=== PATIENT | female | born 1990 | race Caucasian/White ===

== ENCOUNTER 2020-01-28 13:18 | Inpatient (IN) | payer OTHER ==
[~2020-01-28 13:18] MED LIST: Bupivacaine 0.25% 10 ML SDV ONE
[2020-01-28] MEDS ORDERED: Ampicillin 2 GM in Sodium Chloride 0.9% 100 ML IV ONE (14:46)
[2020-01-28] MEDS ORDERED: Nalbuphine 10 MG/ML Syringe IVPUSH PRN (14:46)
[2020-01-28] MEDS ORDERED: Sodium Chloride 0.9% 10 ML Syringe FLUSH PRN (14:46)
[2020-01-28] MEDS ORDERED: Oxytocin/Lactated Ringers 10 UNIT/1,000 ML BAG IV SCH ×2 (15:00)
[2020-01-28] MEDS: Lactated Ringers 1,000 ML IV SCH ×3 (15:00→17:51)
[2020-01-28] MEDS ORDERED: fentaNYL 100 MCG/2 ML SDV EPIDUR PRN (15:22)
[2020-01-28] MEDS ORDERED: diphenhydrAMINE 50 MG/ML SDV IVPUSH PRN (15:22)
[2020-01-28] MEDS ORDERED: ePHEDrine 50 MG/ML SDV IVPUSH PRN (15:22)
[2020-01-28] MEDS ORDERED: Bupivacaine/fentaNYL/NS 100 ML Bag EPIDUR PRN (15:22)
--- NOTE | 2020-01-28 17:36 | PCM.LDHP ---
L&D History of Present Illness - General Date of Service: 01/28/20 Admit Problem/Dx: Patient Status Order with Admit Dx/Problem 01/28/20 15:21 Patient Status [ADT] Routine Admission Diagnosis/Problem Admission Diagnosis/Problem Source of Information: Patient History Limitations: Reports: No Limitations - History of Present Illness Introduction:: Terese is a 29-year-old 3 para 1011 female at 39-4/7 weeks' gestational age with an OLIVIER of 01/31/2020 who presents to L&D in active labor on the afterno on of 01/28/2020. Upon examination, her cervix is 4 cm dilated, 70% effaced, -2 station, posterior position. Decision was made to start Pitocin and patient was in agreement. heart rate monitoring shows good variability, good accelerations, and no decelerations. GBS was positive. Prophylactic ampicillin 2 g IV was started at 1446. Second dose to be given in 4 hours. Artificial rupture of membranes was performed at approximately 1720 with resultant clear fluid. 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 LMP was 04/26/2019 and she had regular cycles prior to becoming . Her average cycles were 30 days. No control was utilized at the time of conception. 2 prior outcomes: 04/28/2018 -8 lbs. 15 oz. baby boy named Mando at 39-1/7 weeks, , 17 hour labor; hx of spontaneous history: LMP was 04/26/2019 with regular cycles. OLIVIER of 01/31/2020 supported by early ultrasound at 6-1/7 weeks' gestational age on 06/10/2019. Multiple ultrasounds showed adequate growth with no abnormalities. Last ultrasound was performed on 10/09/2019 at 23-1/7 weeks' gestational age. MOUSTAPHA was WNL and fetus was at 60th percentile. Fundal height was consistent with dating throughout the . She plans to breast feed after delivery. She requests an epidural as labor progresses. Risk factors for include: history of macrosomic baby (8 lbs. 15 oz.), history of anxiety in period Labs: Blood type is A positive with negative antibody screen. Initial labs showed hemoglobin of 12.8 g/dL and platelets of 513,000. Rubella immune. RPR was nonreactive. Gonorrhea and chlamydia screens were negative. Hepatitis B surface antigen and HIV were negative. 1 hour GTT was normal at 111. Second trimester labs showed hemoglobin of 12.1 g/dL and platelets of 439,000. GBS was positive. Past medical history: 1. history of anxiety 2. Cytosis requiring blood transfusion Past surgical history: 1. Cholecystectomy - 2005 2. Splenectomy - 2005 Allergies: no known allergies Current medications: 1. oral tablet daily Family history: Mother is alive and well, also has history of severe cytosis. She is a twin. F ather is alive and has a history of hypercholesterolemia. 1 sister alive and well. Maternal grandfather is alive and has dementia. Maternal grandmother is , unknown history. Paternal grandfather is , unknown history. Paternal grandmother is secondary to pneumonia. She had a history of cancer, unknown type. No family history of bleeding/clotting disorders, anesthesia-related disorders, or -related problems. Social history: Terese is to Peter. They live in [place], [place]. 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 No tobacco, alcohol, or illicit substance use during . 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 on vits for home meds Social & Family History - Family History Family Medical History: Noncontributory - Tobacco Use Smoking Status *Q: Former Smoker Years of Tobacco use: 4 Used Tobacco, but Quit: Yes Month/Year Tobacco Last Used: 2015 - Recreational Drug Use Recreational Drug Use: No H&P Review of Systems - Review of Systems: Review Of Systems: See Below General: Reports: No Symptoms HEENT: Reports: No Symptoms Pulmonary: Reports: No Symptoms Cardiovascular: Reports: No Symptoms, Blood Pressure Problem Genitourinary: Reports: No Symptoms Musculoskeletal: Reports: No Symptoms Skin: Reports: No Symptoms Psychiatric: Reports: No Symptoms L&D Exam - Exam Exam: See Below - Vital Signs Vital Signs: Last Vital Signs Temp 98.2 F 01/28/20 13:26 Pulse 96 01/28/20 13:26 Resp 16 01/28/20 13:26 BP 123/78 01/28/20 13:26 Pulse Ox Weight: 211 lb - OB Specific Contraction Intensity: Moderate Movement: Active Heart Tones: Present Heart Rate (FHR) Variability: Moderate (6-25 bmp) Presentation: Vertex - Philippe Score Philippe Score Cervix Position: Posterior Philippe Score Consistency: Soft Philippe Score Effacement: 51-70% Philippe Score Dilation: 3-4 cm Philippe Score 's Station: -2 Philippe Score Total: 7 - Exam General: Alert, Oriented HEENT: Conjunctiva Clear, EOMI, Mucosa Moist & [place] Neck: Supple, Trachea Midline Lungs: Clear to Auscultation, Normal Respiratory Effort Cardiovascular: Regular Rate, Regular Rhythm GI/Abdominal Exam: Non-Tender, Other (Gravid abdomen) Genitourinary: Normal external exam, Normal bimanual exam, Cervical dilitation Back Exam: Normal Inspection Extremities: Normal Inspection, Non-Tender, Normal Capillary Refill Skin: Warm, Dry, Intact - Patient Data Lab Results Last 24 hrs: Laboratory Results - last 24 hr 01/28/20 01/28/20 01/28/20 Range/Units 14:55 14:59 14:59 WBC 17.08 H (3.98-10.04) K/mm3 RBC 4.78 (3.98-5.22) M/mm3 Hgb 13.0 (11.2-15.7) gm/dl Hct 39.0 (34.1-44.9) % MCV 81.6 (79.4-94.8) fl MCH 27.2 (25.6-32.2) pg MCHC 33.3 (32.2-35.5) g/dl RDW Std Deviation 45.2 (36.4-46.3) fL Plt Count 327 D (182-369) K/mm3 MPV 11.1 (9.4-12.3) fl Neut % (Auto) 78.6 H (34.0-71.1) % Lymph % (Auto) 15.1 L (19.3-51.7) % [place] % (Auto) 5.0 (4.7-12.5) % Eos % (Auto) 0.2 L (0.7-5.8) Baso % (Auto) 0.3 (0.1-1.2) % Neut # (Auto) 13.43 H (1.56-6.13) K/mm3 Lymph # (Auto) 2.58 (1.18-3.74) K/mm3 [place] # (Auto) 0.85 H (0.24-0.36) K/mm3 Eos # (Auto) 0.04 (0.04-0.36) K/mm3 Baso # (Auto) 0.05 (0.01-0.08) K/mm3 Manual Slide Review Abnormal smear COVID-19 (TO) Negative (NEGATIVE) Blood Type A POSITIVE Gel Antibody Screen Negative Result Diagrams: 01/28/20 14:59 Problem List Initiated/Reviewed/Updated: Yes Orders Last 24hrs: Active Orders 24 hr Category Date Time Status Patient Status [ADT] Routine ADT 01/28/20 15:21 Active Activity as Tolerated [RC] PFP Care 01/28/20 14:46 Active Communication Order [RC] ASDIRECTED Care 01/28/20 14:46 Active Communication Order [RC] ASDIRECTED Care 01/28/20 15:22 Active Cooling Warming Measures [RC] ASDIRECTED Care 01/28/20 15:22 Active Heart Tones [RC] ASDIRECTED Care 01/28/20 14:47 Active Non Stress Test [RC] PER UNIT ROUTINE Care 01/28/20 13:26 Active Notify Provider [RC] ASDIRECTED Care 01/28/20 15:22 Active Notify Provider [RC] ASDIRECTED Care 01/28/20 15:22 Active Notify Provider [RC] PFP Care 01/28/20 14:46 Active Notify Provider [RC] PRN Care 01/28/20 14:46 Active Oxygen Therapy [RC] ASDIRECTED Care 01/28/20 15:22 Active Peripheral IV Care [RC] Q2HR Care 01/28/20 14:47 Active Pulse Oximetry [RC] ASDIRECTED Care 01/28/20 15:22 Active Vital Signs [RC] 03,09,15,21 Care 01/28/20 15:22 Active Vital Signs [RC] PER UNIT ROUTINE Care 01/28/20 13:26 Active Regular Diet [DIET] Diet 01/28/20 Lunch Active RAPID PLASMA REAGIN,RPR [CHEM] Routine Lab 01/28/20 14:59 Received Ampicillin 1 gm Med 01/28/20 19:00 Active Sodium Chloride 0.9% [Normal Saline] 100 ml IV Q4H Bupivacaine/fentaNYL/NS [fentaNYL/Bupivacaine/NS 2 MCG- Med 01/28/20 15:22 Active 0.125% 100 ML] 100 ml EPIDUR ASDIRECTED PRN Lactated Ringers [Ringers, Lactated] 1,000 ml Med 01/28/20 15:00 Active IV ASDIRECTED Nalbuphine [Nubain] Med 01/28/20 14:46 Active 10 mg IVPUSH Q2H PRN Oxytocin/Lactated Ringers [Pitocin in LR 10 Units/1,000 Med 01/28/20 15:00 Active ML] 10 unit in 1,000 ml IV .CONTINUOUS Oxytocin/Lactated Ringers [Pitocin in LR 10 Units/1,000 Med 01/28/20 15:00 Active ML] 10 unit in 1,000 ml IV TITRATE Sodium Chloride 0.9% [Saline Flush] Med 01/28/20 14:46 Active 10 ml FLUSH ASDIRECTED PRN diphenhydrAMINE [Benadryl] Med 01/28/20 15:22 Active 25 mg IVPUSH Q6H PRN ePHEDrine [ePHEDrine sulfate] Med 01/28/20 15:22 Active 5 mg IVPUSH ASDIRECTED PRN fentaNYL [Sublimaze] Med 01/28/20 15:22 Active 100 mcg EPIDUR Q3H PRN Electronic Heart Tones Ext w TOCO [WOMSER] Oth 01/28/20 14:46 Ordered Routine Electronic Heart Tones Internal [WOMSER] Per Unit Oth 01/28/20 14:46 Ordered Routine Peripheral IV Insertion Adult [OM.PC] Routine Oth 01/28/20 14:46 Ordered Resuscitation Status Routine Resus Stat 01/28/20 13:25 Ordered Medication Orders Diphenhydramine HCl (Benadryl) 25 mg IVPUSH Q6H PRN PRN Reason: pruritis Ephedrine Sulfate (Ephedrine Sulfate) 5 mg IVPUSH ASDIRECTED PRN PRN Reason: Hypotension Fentanyl (Sublimaze) 100 mcg EPIDUR Q3H PRN PRN Reason: Pain Last Admin: 01/28/20 17:24 Dose: 100 mcg Documented by: CELENA Fentanyl/Bupivacaine HCl (Fentanyl/Bupivacaine/Ns 2 Mcg-0.125% 100 Ml) 100 ml EPIDUR ASDIRECTED PRN PRN Reason: Pain Last Admin: 01/28/20 17:25 Dose: 100 ml Documented by: CELENA Lactated Ringer's (Ringers, Lactated) 1,000 mls @ 100 mls/hr IV ASDIRECTED ELAINE Last Admin: 01/28/20 17:14 Dose: 100 mls/hr Documented by: Infusion: 01/28/20 17:14 Dose: 100 mls/hr Documented by: Admin: 01/28/20 15:00 Dose: 100 mls/hr Documented by: CELENA Ampicillin Sodium 1 gm/ Sodium (Chloride) 100 mls @ 200 mls/hr IV Q4H ELAINE Oxytocin/Lactated Ringer's (Pitocin In Lr 10 Units/1,000 Ml) 10 unit in 1,000 mls @ 100 mls/hr IV .CONTINUOUS ELAINE Oxytocin/Lactated Ringer's (Pitocin In Lr 10 Units/1,000 Ml) 10 unit in 1,000 mls @ 12 mls/hr IV TITRATE ELAINE; Protocol Nalbuphine HCl (Nubain) 10 mg IVPUSH Q2H PRN PRN Reason: Pain Sodium Chloride (Saline Flush) 10 ml FLUSH ASDIRECTED PRN PRN Reason: Keep Vein Open Assessment/Plan Comment:: Assessment: 1. Terese is a 29-year-old white 3 para 1011 female at 39-4/7 weeks' gestational age with an OLIVIER of 01/31/2020 who presents in active labor 2. Risk factors for : history of macrosomic baby (8 lbs. 15 oz.), history of anxiety in period 3. GBS positive. 4. Rubella immune 5. RPR nonreactive 6. Patient desires epidural as labor progresses Plan: 1. Induction with Pitocin is discussed including risks and benefits. Patient vo ices understanding and wishes to proceed. 2. Artificial rupture of membranes performed at approximately 1720. 3. Ampicillin 2 g IV given at 1426. Second dose of ampicillin 1 g given every 4 hours thereafter. 4. Regular diet. 5. Routine labor care. 6. RPR and CBC upon admission. 7. Epidural available if patient so chooses. 8. Anticipate normal spontaneous vaginal delivery.
--- NOTE | 2020-01-28 17:40 | PCM.PREANE ---
Preanesthetic Assessment - Procedure Proposed Procedure: epidural - Anesthesia/Transfusion/Family Hx Anesthesia History: Prior Anesthesia Without Reaction Family History of Anesthesia Reaction: No Transfusion History: Prior Transfusion Without Reaction - Review of Systems General: Fatigue Pulmonary: No Symptoms Cardiovascular: No Symptoms Gastrointestinal: Abdominal Pain (labor) Neurological: No Symptoms Other: Reports: None - Physical Assessment Vital Signs: Last Vital Signs Temp 36.8 C 01/28/20 13:26 Pulse 96 01/28/20 13:26 Resp 16 01/28/20 13:26 BP 123/78 01/28/20 13:26 Pulse Ox Height: 1.78 m Weight: 95.708 kg ASA Class: 2 Mental Status: Alert & Oriented x3 Airway Class: Mallampati = 1 Dentition: Reports: Normal Dentition Thyro-Mental Finger Breadths: 3 Mouth Opening Finger Breadths: 3 ROM/Head Extension: Full Lungs: Clear to Auscultation, Normal Respiratory Effort Cardiovascular: Regular Rate, Regular Rhythm - Lab Values: Laboratory Last Values WBC 17.08 K/mm3 (3.98-10.04) H 01/28/20 14:59 RBC 4.78 M/mm3 (3.98-5.22) 01/28/20 14:59 Hgb 13.0 gm/dl (11.2-15.7) 01/28/20 14:59 Hct 39.0 % (34.1-44.9) 01/28/20 14:59 MCV 81.6 fl (79.4-94.8) 01/28/20 14:59 MCH 27.2 pg (25.6-32.2) 01/28/20 14:59 MCHC 33.3 g/dl (32.2-35.5) 01/28/20 14:59 RDW Std Deviation 45.2 fL (36.4-46.3) 01/28/20 14:59 Plt Count 327 K/mm3 (182-369) D 01/28/20 14:59 MPV 11.1 fl (9.4-12.3) 01/28/20 14:59 Neut % (Auto) 78.6 % (34.0-71.1) H 01/28/20 14:59 Lymph % (Auto) 15.1 % (19.3-51.7) L 01/28/20 14:59 [place] % (Auto) 5.0 % (4.7-12.5) 01/28/20 14:59 Eos % (Auto) 0.2 (0.7-5.8) L 01/28/20 14:59 Baso % (Auto) 0.3 % (0.1-1.2) 01/28/20 14:59 Neut # (Auto) 13.43 K/mm3 (1.56-6.13) H 01/28/20 14:59 Lymph # (Auto) 2.58 K/mm3 (1.18-3.74) 01/28/20 14:59 [place] # (Auto) 0.85 K/mm3 (0.24-0.36) H 01/28/20 14:59 Eos # (Auto) 0.04 K/mm3 (0.04-0.36) 01/28/20 14:59 Baso # (Auto) 0.05 K/mm3 (0.01-0.08) 01/28/20 14:59 Manual Slide Review Abnormal smear 01/28/20 14:59 COVID-19 (TO) Negative (NEGATIVE) 01/28/20 14:55 Blood Type A POSITIVE 01/28/20 14:59 Gel Antibody Screen Negative 01/28/20 14:59 - Allergies Allergies/Adverse Reactions: Allergies Allergy/AdvReac Type Severity Reaction Status Date / Time No Known Allergies Allergy Verified 04/28/18 04:40 - Anesthesia Plan Pre-Op Medication Ordered: None - Acknowledgements Anesthesia Type Planned: Epidural Pt an Appropriate Candidate for the Planned Anesthesia: Yes Alternatives and Risks of Anesthesia Discussed w Pt/Guardian: Yes Pt/Guardian Understands and Agrees with Anesthesia Plan: Yes PreAnesthesia Questionnaire - Past Health History Medical/Surgical History: Denies Medical/Surgical History Cardiovascular History: Reports: None Respiratory History: Reports: None Gastrointestinal History: Reports: 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 on vits for home meds - SUBSTANCE USE Smoking Status *Q: Former Smoker Tobacco Use Within Last Twelve Months: Cigarettes Recreational Drug Use History: No - HOME MEDS Home Medications: Home Meds No122/Iron/Folic Acid [ Multi Tablet] 1 each PO DAILY 01/28/20 [History] - CURRENT (IN HOUSE) MEDS Current Meds: Current Medications Diphenhydramine HCl (Benadryl) 25 mg IVPUSH Q6H PRN PRN Reason: pruritis Ephedrine Sulfate (Ephedrine Sulfate) 5 mg IVPUSH ASDIRECTED PRN PRN Reason: Hypotension Fentanyl (Sublimaze) 100 mcg EPIDUR Q3H PRN PRN Reason: Pain Last Admin: 01/28/20 17:24 Dose: 100 mcg Documented by: Fentanyl/Bupivacaine HCl (Fentanyl/Bupivacaine/Ns 2 Mcg-0.125% 100 Ml) 100 ml EPIDUR ASDIRECTED PRN PRN Reason: Pain Last Admin: 01/28/20 17:25 Dose: 100 ml Documented by: Lactated Ringer's (Ringers, Lactated) 1,000 mls @ 100 mls/hr IV ASDIRECTED ELAINE Last Admin: 01/28/20 17:14 Dose: 100 mls/hr Documented by: Ampicillin Sodium 1 gm/ Sodium (Chloride) 100 mls @ 200 mls/hr IV Q4H ELAINE Oxytocin/Lactated Ringer's (Pitocin In Lr 10 Units/1,000 Ml) 10 unit in 1,000 mls @ 100 mls/hr IV .CONTINUOUS ELAINE Oxytocin/Lactated Ringer's (Pitocin In Lr 10 Units/1,000 Ml) 10 unit in 1,000 mls @ 12 mls/hr IV TITRATE ELAINE; Protocol Nalbuphine HCl (Nubain) 10 mg IVPUSH Q2H PRN PRN Reason: Pain Sodium Chloride (Saline Flush) 10 ml FLUSH ASDIRECTED PRN PRN Reason: Keep Vein Open Discontinued Medications Ampicillin Sodium 2 gm/ Sodium (Chloride) 100 mls @ 200 mls/hr IV ONETIME ONE Stop: 01/28/20 15:15 Last Admin: 01/28/20 15:00 Dose: 200 mls/hr Documented by:
[2020-01-28] MEDS ORDERED: Ampicillin 1 GM in Sodium Chloride 0.9% 100 ML IV SCH (19:00)
[2020-01-28] MEDS ORDERED: Lidocaine 1% 50 ML MDV ONE (21:42)
--- NOTE | 2020-01-28 22:13 | PCM.SN.2 ---
- Free Text/Narrative Note: Terese is a 29-year-old 3 now para 2012 white female who was admitted for active labor at 39-4/7 weeks gestational age with an OLIVIER of 01/31/2020. Patient was jessica every 5-7 minutes upon arrival. She was dilated to 4 cm, 70% effaced, soft, posterior, -2 station. Patient was GBS positive, so she received prophylactic antibiotics during labor. After a few hours of good labor pattern, she underwent artificial rupture of membranes with resultant clear amniotic fluid at approximately 1720. She received labor analgesia via an epidural. She progressed rapidly from 4 cm to complete at approximately 2120 hours on 01/28/2020. At 2131, patient delivered a viable, anguiano, female infant named Lee Ann Armas. Baby weighed 3880 g (8 pounds 8.9 ounces). Apgars of 8 and 9. Length of 20.5 inches. Baby delivered in an occiput anterior position. Patient sustained 2nd degree laceration as well as left labial laceration. Baby was placed on moms abdomen, dried and nose and mouth were cleared with bulb suction. Pitocin was increased to 500 cc/hour to facilitate increase in uterine tone to decrease likelihood of bleeding. The umbilical cord was intact with 3 vessels present. Cord was allowed to pulsate for approximately 2 to 3 minutes. It was then clamped x2 and cut by juliane Green. Cord blood was obtained. Repair of lacerations was then undertaken with interrupted and short running sutures of 3-0 Monocryl. Perineal and labial lacerations were repaired in a routine fashion. Labor epidural analgesia was used for perineal laceration repair anesthesia. Patient required 10 cc of 1% lidocaine for labial lacerations. Patient tolerated this well. The placenta delivered in a [place] presentation at 2153. It appeared intact and completed. It was discard per patient desire. Blood loss was 200 cc. Patient plans to breastfeed.
[2020-01-28] MEDS ORDERED: Docusate Sodium 100 MG Cap PO PRN (22:38)
[2020-01-28] MEDS ORDERED: Acetaminophen 325 MG Tab PO PRN (22:38)
[2020-01-28] MEDS ORDERED: Benzocaine/Menthol 20%-0.5% Spray 56 GM Canister TOP PRN (22:38)
[2020-01-28] MEDS ORDERED: Witch Hazel Medicated Pads 40/Jar TOP PRN (22:38)
[2020-01-29] MEDS: Ibuprofen 600 MG Tab PO PRN ×4 (00:04→20:16)
--- NOTE | 2020-01-29 07:31 | PCM.SN.2 ---
- Free Text/Narrative Note: note: Patient is doing well in the period. Minimal lochia, voiding well, nursing with no concerns, and has ambulated without problems. Pain well controlled. Patient is afebrile, vital signs are stable Abdomen is flat, soft, uterus is below the umbilicus and is firm and nontender. Legs are nontender. Assessment: recovery going well. Plan: Routine care. Patient be discharged home within the next 24-48 hours.
[2020-01-29] MEDS: Prenatal Multivitamin with Calcium/Folic Acid/Iron Tab PO SCH (08:55)
[2020-01-30] MEDS: Ibuprofen 600 MG Tab PO PRN (06:21)
[2020-01-30] MEDS: Prenatal Multivitamin with Calcium/Folic Acid/Iron Tab PO SCH (08:40)
--- NOTE | 2020-01-30 09:30 | PCM.SN.2 ---
- Free Text/Narrative Note: Post Progress Note PPD #2 Subjective: Doing well overall. Ambulating without difficulty. Lochia minimal. Voiding without difficulty. Tolerating regular diet without nausea or vomiting. Pain controlled with oral medications. Breast-feeding with minimal difficulty but did use some formula supplementation on day #1. She states that she has not needed to use any additional formula supplementation for the last 3 or so feedings. Objective: Vitals: Vital Signs - 24 hr 01/29/20 01/29/20 01/29/20 15:19 20:18 21:00 Temperature 36.4 C Temperature [ 36.6 C Temporal] Pulse, 71 72 Peripheral Respiratory 14 16 Rate Blood Pressure 102/72 111/63 O2 Sat by Pulse 99 99 Oximetry 01/30/20 01/30/20 06:15 07:43 Temperature 36.7 C 36.4 C Temperature [ Temporal] Pulse, 73 63 Peripheral Respiratory 16 14 Rate Blood Pressure 126/99 H 122/82 O2 Sat by Pulse 97 99 Oximetry Physical Exam General: Alert and oriented, no acute distress Lungs: Clear to auscultation bilaterally Heart: Regular rate and rhythm Abdomen: Soft, minimal appropriate tenderness, non-distended, fundus midline, nontender, and at the umbilicus Extremities: No edema ASSESSMENT: 29-year-old female GP s/p -0-1-2 vaginal delivery PPD #2, complicated by GBS positive status and received 2 doses of antibiotics prior to delivery PLAN: Doing well Breast-feeding with minimal difficulty. Assist as needed Lochia minimal. Continue to monitor for appropriate lochia. Continue routine care Patient with 1 mildly elevated blood pressure this morning but no other elevated blood pressures throughout her stay. Suspect that this may have been a pain reaction and not secondary to gestational hypertension or preeclampsia Discharge home today Aidan Mosley MD 9:32 AM 01/30/2020
--- NOTE | 2020-01-30 09:52 | PCM.DCSUM1 ---
Discharge Summary - Hospital Course Free Text/Narrative:: Terese is a 29-year-old 3 now para 2012 white female who was admitted for active labor at 39-4/7 weeks gestational age with an OLIVIER of 01/31/2020. Patient was jessica every 5-7 minutes upon arrival. She was dilated to 4 cm, 70% effaced, soft, posterior, -2 station. Patient was GBS positive, so she received prophylactic antibiotics during labor. After a few hours of good labor pattern, she underwent artificial rupture of membranes with resultant clear amniotic fluid at approximately 1720. She received labor analgesia via an epidural. She progressed rapidly from 4 cm to complete at approximately 2120 hours on 01/28/2020. At 213, patient delivered a viable, anguiano, female infant named Lee Ann Armas. Baby weighed 3880 g (8 pounds 8.9 ounces). Apgars of 8 and 9. Length of 20.5 inches. Baby delivered in an occiput anterior position. Patient sustained 2nd degree laceration as well as left labial laceration. Baby was placed on moms abdomen, dried and nose and mouth were cleared with bulb suction. Pitocin was increased to 500 cc/hour to facilitate increase in uterine tone to decrease likelihood of bleeding. The umbilical cord was intact with 3 vessels present. Cord was allowed to pulsate for approximately 2 to 3 minutes. It was then clamped x2 and cut by juliane Green. Cord blood was obtained. Repair of lacerations was then undertaken with interrupted and short running sutures of 3-0 Monocryl. Perineal and labial lacerations were repaired in a routine fashion. Labor epidural analgesia was used for perineal laceration repair anesthesia. Patient required 10 cc of 1% lidocaine for labial lacerations. Patient tolerated this well. The placenta delivered in a [place] presentation at 2153. It appeared intact and completed. It was discard per patient desire. Blood loss was 200 cc. Patient plans to breastfeed. HPI Initial Comments: Terese is a 29-year-old 3 now para 2012 white female who was admitted for active labor at 39-4/7 weeks gestational age with an OLIVIER of 01/31/2020. Patient was jessica every 5-7 minutes upon arrival. She was dilated to 4 cm, 70% effaced, soft, posterior, -2 station. Patient was GBS positive, so she received prophylactic antibiotics during labor. After a few hours of good labor pattern, she underwent artificial rupture of membranes with resultant clear amniotic fluid at approximately 1720. She received labor analgesia via an epidural. She progressed rapidly from 4 cm to complete at approximately 2120 hours on 01/28/2020. At 213, patient delivered a viable, anguiano, female infant named Lee Ann Armas. Baby weighed 3880 g (8 pounds 8.9 ounces). Apgars of 8 and 9. Length of 20.5 inches. Baby delivered in an occiput anterior position. Patient sustained 2nd degree laceration as well as left labial laceration. Baby was placed on moms abdomen, dried and nose and mouth were cleared with bulb suction. Pitocin was increased to 500 cc/hour to facilitate increase in uterine tone to decrease likelihood of bleeding. The umbilical cord was intact with 3 vessels present. Cord was allowed to pulsate for approximately 2 to 3 minutes. It was then clamped x2 and cut by juliane Green. Cord blood was obtained. Repair of lacerations was then undertaken with interrupted and short running sutures of 3-0 Monocryl. Perineal and labial lacerations were repaired in a routine fashion. Labor epidural analgesia was used for perineal laceration repair anesthesia. Patient required 10 cc of 1% lidocaine for labial lacerations. Patient tolerated this well. The placenta delivered in a [place] presentation at 2152. It appeared intact and completed. It was discard per patient desire. Blood loss was 200 cc. Patient plans to breastfeed. Brief History: Terese is a 29-year-old 3 now para 2012 white female who was admitted for active labor at 39-4/7 weeks gestational age with an OLIVIER of 01/31/2020. Patient was jsesica every 5-7 minutes upon arrival. She was dilated to 4 cm, 70% effaced, soft, posterior, -2 station. Patient was GBS positive, so she received prophylactic antibiotics during labor. After a few hours of good labor pattern, she underwent artificial rupture of membranes with resultant clear amniotic fluid at approximately 1720. She received labor analgesia via an epidural. She progressed rapidly from 4 cm to complete at approximately 2120 hours on 01/28/2020. At 2132, patient delivered a viable, anguiano, female infant named Lee Ann Armas. Baby weighed 3880 g (8 pounds 8.9 ounces). Apgars of 8 and 9. Length of 20.5 inches. Baby delivered in an occiput anterior position. Patient sustained 2nd degree laceration as well as left labial laceration. Baby was placed on moms abdomen, dried and nose and mouth were cleared with bulb suction. Pitocin was increased to 500 cc/hour to facilitate increase in uterine tone to decrease likelihood of bleeding. The umbilical cord was intact with 3 vessels present. Cord was allowed to pulsate for approximately 2 to 3 minutes. It was then clamped x2 and cut by juliane Green. Cord blood was obtained. Repair of lacerations was then undertaken with interrupted and short running sutures of 3-0 Monocryl. Perineal and labial lacerations were repaired in a routine fashion. Labor epidural analgesia was used for perineal laceration repair anesthesia. Patient required 10 cc of 1% lidocaine for labial lacerations. Patient tolerated this well. The placenta delivered in a [place] presentation at 2153. It appeared intact and completed. It was discard per patient desire. Blood loss was 200 cc. Patient plans to breastfeed. Diagnosis: Stroke: No - Discharge Data Discharge Date: 01/30/20 Discharge Disposition: Home, Self-Care 01 Condition: Good - Referral to Home Health Primary Care Physician: Sukhdev Brooks MD - Discharge Diagnosis/Problem(s) (1) 39 weeks gestation of SNOMED Code(s): 96012646 ICD Code: Z3A.39 - 39 WEEKS GESTATION OF Status: Acute Current Visit: Yes (2) Vaginal delivery SNOMED Code(s): 559508889 ICD Code: O80 - ENCOUNTER FOR FULL-TERM UNCOMPLICATED DELIVERY Status: Acute Current Visit: Yes (3) GBS (group B Streptococcus carrier), +RV culture, currently SNOMED Code(s): 4560404911188, 842653609, 7482313907754 ICD Code: O99.820 - STREPTOCOCCUS B CARRIER STATE COMPLICATING Status: Acute Current Visit: Yes - Patient Summary/Data Complications: None Consults: None Hospital Course: Terese Bustamante was admitted for active labor. On admission her cervix was dilated to 4 cm. She was GBS positive and was started on ampicillin for GBS prophylaxis. She received a total of 2 doses prior to delivery. She was given pitocin for augmentation. She was given an epidural for anesthesia. She had artificial rupture of membranes with clear fluid. She progressed to complete and began pushing. On 01/28/2020 she had a normal vaginal delivery of a live female infant at 21:32. Apgars of 8 and 9. Weight of 3880 g (8 pounds 8.9 ounces). Her course was uneventful. Her pain was well controlled and she had minimal lochia. She was ambulating, tolerating a regular diet and voiding normally. She was breast-feeding with minimal difficulty. She did use some of formula supplementation on PPD #1 but was not needing to use it on PPD #2. She was afebrile and her hematocrit was 39.0 on admission. She desired to be discharged home on the morning of PPD #2. Her blood type is A+. - Patient Instructions Diet: Regular Diet as Tolerated Activity: Apply Ice, As Tolerated Activity, Other: Nothing in the vagina for 6 weeks Driving: May Drive Today Showering/Bathing: May Shower Notify Provider of: Fever, Increased Pain, Swelling and Redness, Drainage, Nausea and/or Vomiting Other/Special Instructions: Please contact your physician's office if you have heavy vaginal bleeding enough to soak a pad in less than an hour for several hours. Monitor for any signs of an infection in the breasts with severe pain or redness of the breast. - Discharge Plan *PRESCRIPTION DRUG MONITORING PROGRAM REVIEWED*: Not Applicable *COPY OF PRESCRIPTION DRUG MONITORING REPORT IN PATIENT WALTER: Not Applicable Home Medications: Home Meds No122/Iron/Folic Acid [ Multi Tablet] 1 each PO DAILY 01/28/20 [History] Acetaminophen [Tylenol] 650 mg PO Q4H PRN tablet 01/30/20 [Rx] Benzocaine/Menthol [Dermoplast Pain Relief [place]] 1 spray TOP ASDIRECTED PRN canister 01/30/20 [Rx] Docusate Sodium [Colace] 100 mg PO BID PRN cap 01/30/20 [Rx] Ibuprofen [Motrin] 600 mg PO Q4H PRN tablet 01/30/20 [Rx] witch Shant [Tucks] 1 pad TOP ASDIRECTED PRN pad 01/30/20 [Rx] Patient Handouts: Care After Vaginal Delivery Referrals: Sukhdev Brooks MD [Primary Care Provider] - (Follow-up in 2 weeks for routine visit or earlier as needed.) - Discharge Summary/Plan Comment DC Time >30 min.: No - Patient Data Vitals - Most Recent: Last Vital Signs Temp 36.4 C 01/30/20 07:43 Pulse 63 01/30/20 07:43 Resp 14 01/30/20 07:43 BP 122/82 01/30/20 07:43 Pulse Ox 99 01/30/20 07:43 Weight - Most Recent: 95.708 kg I&O - Last 24 hours: Intake & Output 01/29/20 01/30/20 01/30/20 22:59 06:59 14:59 Intake Total 380 Balance 380 Med Orders - Current: Current Medications Acetaminophen (Tylenol) 650 mg PO Q4H PRN PRN Reason: mild pain or fever Last Admin: 01/29/20 03:28 Dose: 650 mg Documented by: Benzocaine/Menthol (Dermoplast Pain Relief [place]) 0 gm TOP ASDIRECTED PRN PRN Reason: Perineal Comfort Measure Last Admin: 01/28/20 23:19 Dose: 1 applic Documented by: Docusate Sodium (Colace) 100 mg PO BID PRN PRN Reason: Constipation Ibuprofen (Motrin) 600 mg PO Q4H PRN PRN Reason: Mild pain or fever Last Admin: 01/30/20 06:21 Dose: 600 mg Documented by: Prenat Multivit/[place]/Iron/Folic Ac ( Plus Iron) 1 each PO DAILY ELAINE Last Admin: 01/30/20 08:40 Dose: Not Given [facility] TOP ASDIRECTED PRN PRN Reason: Perineal Comfort Measure Last Admin: 01/28/20 23:19 Dose: 1 pad Documented by: Discontinued Medications Bupivacaine HCl (Sensorcaine-Mpf 0.25%) 10 ml .ROUTE .STK-MED ONE Stop: 01/28/20 00:01 Diphenhydramine HCl (Benadryl) 25 mg IVPUSH Q6H PRN PRN Reason: pruritis Ephedrine Sulfate (Ephedrine Sulfate) 5 mg IVPUSH ASDIRECTED PRN PRN Reason: Hypotension Fentanyl (Sublimaze) 100 mcg EPIDUR Q3H PRN PRN Reason: Pain Last Admin: 01/28/20 17:24 Dose: 100 mcg Documented by: Fentanyl/Bupivacaine HCl (Fentanyl/Bupivacaine/Ns 2 Mcg-0.125% 100 Ml) 100 ml EPIDUR ASDIRECTED PRN PRN Reason: Pain Last Admin: 01/28/20 17:25 Dose: 100 ml Documented by: Lactated Ringer's (Ringers, Lactated) 1,000 mls @ 100 mls/hr IV ASDIRECTED ELAINE Last Admin: 01/28/20 17:51 Dose: 100 mls/hr Documented by: Ampicillin Sodium 2 gm/ Sodium (Chloride) 100 mls @ 200 mls/hr IV ONETIME ONE Stop: 01/28/20 15:15 Last Admin: 01/28/20 15:00 Dose: 200 mls/hr Documented by: Ampicillin Sodium 1 gm/ Sodium (Chloride) 100 mls @ 200 mls/hr IV Q4H ELAINE Last Admin: 01/28/20 19:10 Dose: 200 mls/hr Documented by: Oxytocin/Lactated Ringer's (Pitocin In Lr 10 Units/1,000 Ml) 10 unit in 1,000 mls @ 100 mls/hr IV .CONTINUOUS ELAINE Last Admin: 01/28/20 21:48 Dose: 100 mls/hr Documented by: Oxytocin/Lactated Ringer's (Pitocin In Lr 10 Units/1,000 Ml) 10 unit in 1,000 mls @ 12 mls/hr IV TITRATE ELAINE; Protocol Lidocaine HCl (Xylocaine 1%) Confirm Administered Dose 50 ml .ROUTE .STK-MED ONE Stop: 01/28/20 21:43 Last Admin: 01/28/20 21:48 Dose: 50 ml Documented by: Nalbuphine HCl (Nubain) 10 mg IVPUSH Q2H PRN PRN Reason: Pain Sodium Chloride (Saline Flush) 10 ml FLUSH ASDIRECTED PRN PRN Reason: Keep Vein Open
== END 2020-01-30 10:15 | disposition home or self-care (01) | DRG 807 ==
LOC: JD.OB 13:18 → JD.OBCHECK 13:18 → JD.OB 15:21 → JD.OBCHECK 15:21 → OBSVTOIN 21:32 → JD.OB 21:33
PROVIDERS: ADMIT Obstetrics & Gynecology; ATTEND Obstetrics & Gynecology
PROC: 10E0XZZ Delivery of Products of Conception, External Approach (ICD-10-PCS; principal; 2020-01-28)
PROC: 0KQM0ZZ Repair Perineum Muscle, Open Approach (ICD-10-PCS; 2020-01-28)
PROC: 10907ZC Drainage of Amniotic Fluid, Therapeutic from Products of Conception, Via Natural or Artificial Opening (ICD-10-PCS; 2020-01-28)
PROC: 0UQMXZZ Repair Vulva, External Approach (ICD-10-PCS; 2020-01-28)
PROC: 3E0R3BZ Introduction of Anesthetic Agent into Spinal Canal, Percutaneous Approach (ICD-10-PCS; 2020-01-28)
DX: O99.824 Streptococcus B carrier state complicating childbirth (principal); Z37.0 Single live birth; O70.1 Second degree perineal laceration during delivery; Z3A.39 39 weeks gestation of pregnancy; Z11.59 Encounter for screening for other viral diseases
CPT/HCPCS: 36415; 51702; 59025; 59409; 85025; 86592; 86850; 86900; 86901; A9270-GY; J0290; J2001; J2590; J3010; J3490; J7050; J7120; U0002

== ENCOUNTER 2021-07-08 14:28 | Emergency (ER) | payer BC, OTHER ==
[2021-07-08] MEDS ORDERED: Acetaminophen/HYDROcodone 325-5 MG Tab PO ONE (16:24)
== END 2021-07-08 17:25 | disposition home or self-care (01) ==
LOC: JD.ED 14:28
DX: S82.851A Displaced trimalleolar fracture of right lower leg, initial encounter for closed fracture (principal); W00.0XXA Fall on same level due to ice and snow, initial encounter
CPT/HCPCS: 29515; 73610-26-RT; 73610-RT; 99283; 99283-25; A9270-GY

== ENCOUNTER 2021-07-21 10:50 | Day surgery (SDC) | payer OTHER ==
[~2021-07-21 10:50] MED LIST changes: -Bupivacaine 0.25% 10 ML SDV ONE; +Lactated Ringers 1,000 ML IV SCH; +Lidocaine 1%/Sod Bicarbonate in NS 8.4% 1 ML Syringe IDERM PRN; +Sodium Chloride 0.9% 10 ML Syringe FLUSH PRN; +Sodium Chloride 0.9% 10 ML Syringe FLUSH SCH
[2021-07-21] MEDS ORDERED: fentaNYL 100 MCG/2 ML SDV ONE ×2 (10:52→12:03)
[2021-07-21] MEDS ORDERED: Midazolam 1 MG/ML 2 ML SDV ONE (10:53)
[2021-07-21] MEDS ORDERED: Ropivacaine 0.5% 5 MG/ML 30 ML SDV ONE (10:54)
[2021-07-21] MEDS ORDERED: Dexamethasone 4 MG/ML 5 ML MDV ONE (10:55)
[2021-07-21] MEDS ORDERED: Dexmedetomidine 200 MCG/2 ML SDV ONE (10:57)
[2021-07-21] MEDS ORDERED: Lidocaine 1% 4 ML ONE (10:57)
[2021-07-21] MEDS ORDERED: Bupivacaine 0.25% 10 ML SDV ONE (11:26)
[2021-07-21] MEDS ORDERED: Propofol 200 MG/20 ML SDV ONE ×4 (12:03→13:35)
[2021-07-21] MEDS ORDERED: ceFAZolin 1 GM Vial ONE (12:10)
== END 2021-07-21 15:41 | disposition home or self-care (01) ==
LOC: JD.SDS 10:50
PROVIDERS: ATTEND Orthopaedic Surgery
DX: S82.841A Displaced bimalleolar fracture of right lower leg, initial encounter for closed fracture (principal); Z79.899 Other long term (current) drug therapy; Z98.890 Other specified postprocedural states; Z87.891 Personal history of nicotine dependence
CPT/HCPCS: 27814; 76000; C1713; C1776; J0690; J1100; J2250; J2704; J2795; J3010; J3490; J7120; 01480; 64450; 76942

== ENCOUNTER 2022-09-12 06:54 | Inpatient (IN) | payer BC ==
[~2022-09-12 06:54] MED LIST changes: -Lactated Ringers 1,000 ML IV SCH; +Lidocaine 1% 10 ML MDV ONE; -Lidocaine 1%/Sod Bicarbonate in NS 8.4% 1 ML Syringe IDERM PRN; -Sodium Chloride 0.9% 10 ML Syringe FLUSH PRN; -Sodium Chloride 0.9% 10 ML Syringe FLUSH SCH
[2022-09-12] MEDS ORDERED: Nalbuphine 10 MG/0.5 ML Syringe IVPUSH PRN (07:16)
[2022-09-12] MEDS ORDERED: Calcium Carbonate 500 MG Tab.Chew PO PRN (07:16)
[2022-09-12] MEDS ORDERED: Ondansetron 4 MG/2 ML SDV IVPUSH PRN (07:16)
[2022-09-12] MEDS ORDERED: Lactated Ringers 1,000 ML IV SCH (07:30)
[2022-09-12] MEDS ORDERED: Penicillin G Potassium 5 MILLUNITS in Sodium Chloride 0.9% 100 ML IV SCH (07:30)
[2022-09-12] MEDS ORDERED: Oxytocin/Lactated Ringers 10 UNIT/1,000 ML BAG IV SCH ×2 (07:30)
[2022-09-12] MEDS ORDERED: ePHEDrine 50 MG/ML SDV IVPUSH PRN (11:05)
[2022-09-12] MEDS ORDERED: Bupivacaine/fentaNYL/NS 100 ML Bag EPIDUR PRN (11:05)
[2022-09-12] MEDS ORDERED: diphenhydrAMINE 50 MG/ML SDV IVPUSH PRN (11:05)
[2022-09-12] MEDS ORDERED: fentaNYL 100 MCG/2 ML SDV EPIDUR PRN (11:05)
[2022-09-12] MEDS ORDERED: Penicillin G Potassium 5,000,000 Unit Vial ONE (12:08)
[2022-09-12] MEDS: Penicillin G Potassium 2.5 MILLUNITS in Sodium Chloride 0.9% 100 ML IV SCH ×2 (12:10→22:33)
[2022-09-12] MEDS ORDERED: Ibuprofen 600 MG Tab PO PRN ×2 (15:42→17:33)
[2022-09-12] MEDS ORDERED: Acetaminophen 325 MG Tab PO PRN ×2 (15:42→17:33)
[2022-09-12] MEDS ORDERED: Docusate Sodium 100 MG Cap PO PRN (17:33)
[2022-09-12] MEDS ORDERED: Witch Hazel Medicated Pads 40/Jar TOP PRN (17:33)
[2022-09-12] MEDS ORDERED: Benzocaine/Menthol 20%-0.5% Spray 78 GM Cannister TOP PRN (17:33)
[2022-09-13] MEDS: Prenatal Multivitamin with Calcium/Folic Acid/Iron Tab PO SCH (18:33)
[2022-09-14] MEDS: Prenatal Multivitamin with Calcium/Folic Acid/Iron Tab PO SCH (09:50)
== END 2022-09-14 09:45 | disposition home or self-care (01) | DRG 560 ==
LOC: JD.OBCHECK 06:54 → JD.OB 07:13 → JD.OBCHECK 07:15 → OBSVTOIN 07:15 → JD.OB 07:15
PROVIDERS: ADMIT Obstetrics & Gynecology; ATTEND Obstetrics & Gynecology
PROC: 10E0XZZ Delivery of Products of Conception, External Approach (ICD-10-PCS; principal; 2022-09-12)
PROC: 10907ZC Drainage of Amniotic Fluid, Therapeutic from Products of Conception, Via Natural or Artificial Opening (ICD-10-PCS; 2022-09-12)
PROC: 3E033VJ Introduction of Other Hormone into Peripheral Vein, Percutaneous Approach (ICD-10-PCS; 2022-09-12)
PROC: 0KQM0ZZ Repair Perineum Muscle, Open Approach (ICD-10-PCS; 2022-09-12)
PROC: 3E0R3BZ Introduction of Anesthetic Agent into Spinal Canal, Percutaneous Approach (ICD-10-PCS; 2022-09-12)
PROC: 00HU33Z Insertion of Infusion Device into Spinal Canal, Percutaneous Approach (ICD-10-PCS; 2022-09-12)
DX: O99.824 Streptococcus B carrier state complicating childbirth (principal); O70.1 Second degree perineal laceration during delivery; O22.43 Hemorrhoids in pregnancy, third trimester; O99.02 Anemia complicating childbirth; D64.9 Anemia, unspecified; Z37.0 Single live birth; Z3A.40 40 weeks gestation of pregnancy; Z79.82 Long term (current) use of aspirin; Z79.899 Other long term (current) drug therapy; Z90.49 Acquired absence of other specified parts of digestive tract; Z90.81 Acquired absence of spleen
CPT/HCPCS: 01967; 36415; 51702; 59025; 59409; 85025; 86592; A9270-GY; J2540; J2590; J3010; J3490; J7120

== ENCOUNTER 2025-01-12 18:24 | Inpatient (IN) | payer BC ==
[2025-01-12] MEDS ORDERED: Sodium Chloride 0.9% 10 ML Syringe FLUSH PRN (19:27)
[2025-01-12] MEDS ORDERED: Ondansetron 4 MG/2 ML SDV IVPUSH PRN (19:27)
[2025-01-12] MEDS ORDERED: Nalbuphine 10 MG/1 ML Vial IVPUSH PRN (19:27)
[2025-01-12 19:56] LABS: BASOPHILS ABSOLUTE AUTO 0.0 K/mm3 (0.0-0.2); BASOPHILS PERCENT AUTO 0.2 % (0.0-1.0); EOSINOPHILS ABSOLUTE AUTO 0.1 K/mm3 (0.0-0.4); EOSINOPHILS PERCENT AUTO 0.3 % (0.0-6.0); IMMATURE GRAN ABSOLUTE AUTO 0.07 K/mm3 (0.00-0.05); IMMATURE GRAN PERCENT AUTO 0.5 % (0.0-0.4); LYMPHOCYTES ABSOLUTE AUTO 3.2 K/mm3 (1.0-4.8); LYMPHOCYTES PERCENT AUTO 22.0 % (24.0-44.0); MEAN PLATELET VOLUME 10.9 fl (9.4-12.3); MONOCYTES ABSOLUTE AUTO 0.7 K/mm3 (0.0-0.8); MONOCYTES PERCENT AUTO 4.8 % (0.0-8.0); NEUTROPHILS ABSOLUTE AUTO 10.5 K/mm3 (1.8-7.7); NEUTROPHILS PERCENT AUTO 72.2 % (41.0-71.0); NRBC ABSOLUTE 0.00 (0.00-0.02); NRBC PERCENT 0.0 % (0.0-0.2); PLATELET COUNT,PLT 338 K/mm3 (150-400); RED BLOOD CELL COUNT 4.54 M/mm3 (4.10-5.30); WHITE BLOOD CELL COUNT,WBC 14.56 K/mm3 (3.9-11.3)
[2025-01-12] MEDS: Lactated Ringers 1,000 ML IV SCH (20:00)
[2025-01-12] MEDS ORDERED: ePHEDrine 50 MG/ML SDV IVPUSH PRN (20:33)
[2025-01-12] MEDS ORDERED: diphenhydrAMINE 50 MG/ML SDV IVPUSH PRN (20:33)
[2025-01-12] MEDS: fentaNYL 100 MCG/2 ML SDV EPIDUR PRN (21:00)
[2025-01-12] MEDS: Bupivacaine/fentaNYL/NS 100 ML Bag EPIDUR PRN (21:10)
[2025-01-13] MEDS: Oxytocin/0.9 % Sodium Chloride 30 UNIT/500 ML BAG IV SCH (01:30)
[2025-01-13] MEDS ORDERED: Oxytocin/0.9 % Sodium Chloride 30 UNIT/500 ML BAG IV SCH (03:01)
[2025-01-13] MEDS ORDERED: Magnesium Hydroxide 400 MG/5 ML Susp 30 ML Cup PO PRN (03:01)
[2025-01-13] MEDS: Benzocaine/Menthol 20%-0.5% Spray 78 GM Cannister TOP PRN (05:13)
[2025-01-13] MEDS: Witch Hazel Medicated Pads 40/Jar TOP PRN (05:14)
[2025-01-13] MEDS: Prenatal Multivitamin with Calcium/Folic Acid/Iron Tab PO SCH (09:13)
== END 2025-01-14 09:51 | disposition home or self-care (01) | DRG 560 ==
LOC: JD.OBCHECK 18:24 → JD.OB 18:46 → JD.OBCHECK 19:29 → OBSVTOIN 01-13 01:29 → JD.OB 01-13 01:30 → JD.MS 01-13 16:17 → JD.OB 01-13 16:17
PROVIDERS: ADMIT Obstetrics & Gynecology; ATTEND Obstetrics & Gynecology
PROC: 10E0XZZ Delivery of Products of Conception, External Approach (ICD-10-PCS; principal; 2025-01-13)
PROC: 10907ZC Drainage of Amniotic Fluid, Therapeutic from Products of Conception, Via Natural or Artificial Opening (ICD-10-PCS; 2025-01-13)
PROC: 0KQM0ZZ Repair Perineum Muscle, Open Approach (ICD-10-PCS; 2025-01-13)
PROC: 0UQMXZZ Repair Vulva, External Approach (ICD-10-PCS; 2025-01-13)
PROC: 3E0R3BZ Introduction of Anesthetic Agent into Spinal Canal, Percutaneous Approach (ICD-10-PCS; 2025-01-13)
PROC: 4A1HXCZ Monitoring of Products of Conception, Cardiac Rate, External Approach (ICD-10-PCS; 2025-01-13)
PROC: 00HU33Z Insertion of Infusion Device into Spinal Canal, Percutaneous Approach (ICD-10-PCS; 2025-01-13)
DX: O99.824 Streptococcus B carrier state complicating childbirth (principal); Z3A.39 39 weeks gestation of pregnancy; Z37.0 Single live birth; O70.1 Second degree perineal laceration during delivery; O71.82 Other specified trauma to perineum and vulva
CPT/HCPCS: 01967; 36415; 51702; 59025; 59409; 85025; 86592; 86850; 86900; 86901; A9270-GY; J0290; J3010; J3490; J7120; J7999